=== PATIENT | male | born 1955 ===

== ENCOUNTER 2016-12-07 08:51 | Emergency (ER) | payer OTHER ==
[2016-12-07 08:52] VITALS: BMI 30.9
--- NOTE | 2016-12-07 09:47 | C.PDOC ---
History Of Present Illness 61 yo male, presnets with dyuria and urinary frequency x 5 months. pt states he has been seeing his urologist, however can no longer see his urologist due to insurance insurance. pt reports "seconds" of suprapubic pain when he urinates. no fevrs, n/v/d, or other complaints Time Seen by Provider: 12/07/16 09:14 Chief Complaint (Nursing): Abdominal Pain Past Medical History Reviewed: Historical Data, Nursing Documentation, Vital Signs Vital Signs: Last Vital Signs Temp 98.0 F 12/07/16 11:22 Pulse 77 12/07/16 11:22 Resp 16 12/07/16 11:22 BP 117/78 12/07/16 11:22 Pulse Ox 98 12/07/16 12:07 - Medical History PMH: Anxiety, HTN, Kidney Stones, Chronic Kidney Disease Family History: States: Unknown Family Hx - Social History Hx Alcohol Use: No Hx Substance Use: No - Immunization History Hx Influenza Vaccination: No Review Of Systems Except As Marked, All Systems Reviewed And Found Negative. Genitourinary: Positive for: Dysuria, Frequency Physical Exam - Physical Exam Appears: Well, No Acute Distress Skin: Normal Color, Warm, Dry Eye(s): bilateral: Normal Inspection, PERRL, EOMI Nose: Normal Throat: Normal Neck: Normal Cardiovascular: Rhythm Regular Respiratory: Normal Breath Sounds Gastrointestinal/Abdominal: Normal Exam, Soft, Tenderness (minimal suprapubic), No Guarding, No Rebound Back: Normal Inspection Extremity: Normal ROM ED Course And Treatment O2 Sat by Pulse Oximetry: 98 Medical Decision Making Medical Decision Making: r/o uti/ suspect bph vs malignancy. extensive bedside discussion about outpt urology w/u needed. pt abd soft no ttp, pt comfortable. 1115: pt reassesedL post void residual <15ml after urinating. ua neg. encouraged outpt w/u with known elevatd psa. pt agrees to f/u outpt. abd soft no ttp, no rlq ttp Disposition - Disposition Referrals: Alonzo Lynn MD [Staff Provider] - [employer] [facility] [Outside] [facility] [Outside] Disposition: HOME/ ROUTINE Disposition Time: 11:00 Condition: GOOD Additional Instructions: please follow up with your doctor. return to er with worsening symptoms or concerns. you will need additional workup as an outpt Instructions: Dysuria (ED) Forms: [facility] (Vietnamese) - Clinical Impression Clinical Impression: Dysuria
[2016-12-07 10:18] LABS: URINE BILIRUBIN NEGATIVE (NEGATIVE); URINE BLOOD NEGATIVE (NEGATIVE); URINE COLOR Amber (YELLOW); URINE GLUCOSE (UA) NORMAL (Normal); URINE KETONE NEGATIVE (NEGATIVE); URINE LEUKOCYTE ESTERASE NEG Leu/uL (Negative); URINE PROTEIN NEGATIVE (NEGATIVE); URINE UROBILINOGEN NORMAL mg/dL (0.2-1.0); WBC URINE < 1 /hpf (0-5)
[2016-12-07 11:23] VITALS: BP 117/78; PULSE 77; RESP 16; TEMP 98
[2016-12-07 12:07] VITALS: O2SAT 98
== END 2016-12-07 11:28 | disposition home or self-care (01) ==
LOC: C.ER 08:51
DX: R30.0 Dysuria (principal)

== ENCOUNTER 2017-02-17 20:07 | Emergency (ER) | payer OTHER ==
[2017-02-17 20:08] VITALS: BMI 33.4
[2017-02-17 20:15] VITALS: O2SAT 97
[2017-02-17] MEDS ORDERED: Sucralfate 1 gm/10 ml Oral Susp UD PO STA (20:30)
--- NOTE | 2017-02-17 20:30 | C.PDOC ---
History Of Present Illness 61 year old male, whose PMHx includes Gastritis, presents to the ED for evaluation of epigastric abdominal pain that radiates to chest wall for 2 days. Patient reports slight nausea and notes he had one episode of vomiting this morning. Patient denies fever, chills, diarrhea. Chief Complaint (Nursing): Abdominal Pain History Per: Patient History/Exam Limitations: no limitations Onset/Duration Of Symptoms: Days (2) Current Symptoms Are (Timing): Still Present Location Of Pain/Discomfort: Epigastric Radiation Of Pain To:: Chest Quality Of Discomfort: "Pain" Associated Symptoms: Nausea, Vomiting. denies: Fever, Chills, Diarrhea Additional History Per: Patient Past Medical History Reviewed: Historical Data, Nursing Documentation, Vital Signs Vital Signs: Last Vital Signs Temp 98.0 F 02/17/17 20:11 Pulse 93 H 02/17/17 20:11 Resp 16 02/17/17 20:11 BP 144/81 02/17/17 20:11 Pulse Ox 97 02/17/17 20:33 - Medical History PMH: Anxiety, Gastritis, HTN, Kidney Stones, Chronic Kidney Disease Surgical History: No Surg Hx Family History: States: Unknown Family Hx - Social History Hx Alcohol Use: No Hx Substance Use: No - Immunization History Hx Influenza Vaccination: No Review Of Systems Constitutional: Negative for: Fever, Chills Cardiovascular: Positive for: Chest Pain Gastrointestinal: Positive for: Nausea, Vomiting, Abdominal Pain (epigastric ). Negative for: Diarrhea Physical Exam - Physical Exam Appears: Non-toxic, No Acute Distress Skin: Normal Color, Warm, Dry Head: Atraumatic, Normacephalic Eye(s): bilateral: Normal Inspection Oral Mucosa: Moist Neck: Supple Chest: Symmetrical, No Deformity, No Tenderness Cardiovascular: Rhythm Regular, No Murmur Respiratory: Normal Breath Sounds, No Rales, No Rhonchi, No Wheezing Gastrointestinal/Abdominal: Soft, Tenderness (epigastric ), No Guarding, No Rebound Extremity: Normal ROM, Capillary Refill (less than 2 seconds ) Neurological/Psych: Oriented x3, Normal Speech, Normal Cognition Gait: Steady ED Course And Treatment - Laboratory Results Result Diagrams: 02/17/17 20:38 02/17/17 20:38 O2 Sat by Pulse Oximetry: 97 (on RA) Pulse Ox Interpretation: Normal Progress Note: Bloodwork, Urinalysis, EKG ordered and reviewed. Carafate PO and Protonix IVP administered. Disposition Counseled Patient/Family Regarding: Diagnosis - Disposition Referrals: [facility] [Outside] Disposition: HOME/ ROUTINE Disposition Time: 22:05 Condition: STABLE Prescriptions: Lansoprazole [Prevacid] 30 mg PO DAILY #30 capsule.dr Instructions: Gastritis (GEN), Diet for Ulcers and Gastritis (ED), Gastroesophageal Reflux Disease (ED) Forms: [employer] [facility] (Chinese), Gen Discharge Inst Turkmen Print Language: MALAYSIAN - POA Present On Arrival: None - Clinical Impression Clinical Impression: Epigastric abdominal pain, Gastro-esophageal reflux, Gastritis - Scribe Statement The provider has reviewed the documentation as recorded by the Scribe (Abida Ly) Provider Attestation: All medical record entries made by the Scribe were at my direction and personally dictated by me. I have reviewed the chart and agree that the record accurately reflects my personal performance of the history, physical exam, medical decision making, and the department course for this patient. I have also personally directed, reviewed, and agree with the discharge instructions and disposition.
[2017-02-17] MEDS ORDERED: Sucralfate 1 gm/10 ml Oral Susp UD ONE (20:41)
[2017-02-17 20:43] LABS: BASO # 0.1 K/uL (0.0-0.2); BASO % 0.7 % (0.0-2.0); EOS # 0.1 K/uL (0.0-0.7); EOS % 0.8 % (0.0-4.0); HEMATOCRIT 40.2 % (35.0-51.0); LYMPH % 24.8 % (20.0-40.0); MEAN CELL VOLUME 91.1 fL (80.0-94.0); MEAN CORPUSCULAR HEMOGLOBIN 31.1 pg (27.0-31.0); MEAN CORPUSCULAR HGB CONC 34.2 g/dL (33.0-37.0); MEAN PLATELET VOLUME 7.2 fL (7.2-11.7); MONO # 0.5 K/uL (0.0-0.8); MONO % 6.2 % (0.0-10.0); RED CELL DISTRIBUTION WIDTH 12.5 % (11.5-14.5); WHITE BLOOD COUNT 8.1 K/uL (4.8-10.8)
[2017-02-17 20:53] LABS: RBC URINE 1 /hpf (0-3); URINE BILIRUBIN NEGATIVE (NEGATIVE); URINE COLOR Yellow (YELLOW); URINE GLUCOSE (UA) NORMAL (Normal); URINE KETONE NEGATIVE (NEGATIVE); URINE LEUKOCYTE ESTERASE NEG Leu/uL (Negative); URINE PROTEIN NEGATIVE (NEGATIVE); URINE UROBILINOGEN NORMAL mg/dL (0.2-1.0); WBC URINE < 1 /hpf (0-5)
[2017-02-17 20:54] LABS: ALKALINE PHOSPHATASE 53 U/L (38-126); ALT/SGPT 65 U/L (21-72); AST/SGOT 26 U/L (17-59); BILIRUBIN,TOTAL 0.4 mg/dL (0.2-1.3); BLOOD UREA NITROGEN 21 mg/dL (9-20); CALCIUM 9.1 mg/dl (8.6-10.4); CARBON DIOXIDE 29 mmol/L (22-30); CHLORIDE 100 mmol/L (98-107); GFR AFRICAN-AMERICAN > 60; GLUCOSE,RANDOM 111 mg/dL (75-110); POTASSIUM 4.5 mmol/L (3.6-5.2); SODIUM 138 mmol/L (132-148); TOTAL PROTEIN 8.8 g/dL (6.3-8.3)
[2017-02-17 20:56] LABS: ALB/GLOB RATIO 1.1 (1.0-2.1)
[2017-02-17 21:02] LABS: URINE BLOOD NEGATIVE (NEGATIVE)
[2017-02-17 22:24] VITALS: BP 136/82; PULSE 74; RESP 20; TEMP 97.9
== END 2017-02-17 22:23 | disposition home or self-care (01) ==
LOC: C.ER 20:07
DX: K21.9 Gastro-esophageal reflux disease without esophagitis (principal); K29.70 Gastritis, unspecified, without bleeding; R10.13 Epigastric pain
CPT/HCPCS: 80053; 81001; 83690; 84484; 85025; 96374; 99284; C9113

== ENCOUNTER 2017-04-15 12:53 | Emergency (ER) | payer OTHER ==
[2017-04-15 12:54] VITALS: BMI 33.4
[2017-04-15 13:30] VITALS: BP 158/85; PULSE 79; RESP 17; TEMP 98.5; O2SAT 98
--- NOTE | 2017-04-15 14:00 | C.PDOC ---
History Of Present Illness 61 y/o male presents to the ER complaining of right ear irritation for the past 3 weeks. Patient reports that he has been using Cortisporin Otic solution 3 drops TID for the past 2 weeks. He states the drops are from his . He also reports that he is taking Doxycycline 100 mg BID for 1 week and the symptoms felt better. Patient is now having occasional ear pain and taking Motrin 800 mg BID. Patient does not have any other complaints. Time Seen by Provider: 04/15/17 13:47 Chief Complaint (Nursing): ENT Problem History Per: Patient Onset/Duration Of Symptoms: Days Current Symptoms Are (Timing): Still Present Severity: Moderate Past Medical History Reviewed: Historical Data, Nursing Documentation, Vital Signs Vital Signs: Last Vital Signs Temp 98.5 F 04/15/17 13:27 Pulse 79 04/15/17 13:27 Resp 17 04/15/17 13:27 BP 158/85 H 04/15/17 13:27 Pulse Ox 98 04/15/17 14:19 - Medical History PMH: Anxiety, Gastritis, HTN, Kidney Stones, Chronic Kidney Disease Other Surgeries: hx of surgeries Family History: States: No Known Family Hx - Social History Hx Alcohol Use: No Hx Substance Use: No - Immunization History Hx Influenza Vaccination: No Review Of Systems Except As Marked, All Systems Reviewed And Found Negative. Constitutional: Negative for: Fever, Chills ENT: Positive for: Ear Pain (right ear ) Physical Exam - Physical Exam Appears: Non-toxic, No Acute Distress Skin: Normal Color, Warm Head: Atraumatic, Normacephalic Eye(s): bilateral: Normal Inspection Ear(s): Left: Normal, Right: Other (minor boggy tissues in inner ear canal, excoriated ear canal possibly due to Q tip excoriation, normal TM) Nose: Normal Throat: Normal, No Erythema, No Exudate Neck: Supple Chest: Symmetrical Cardiovascular: Rhythm Regular Respiratory: Normal Breath Sounds, No Accessory Muscle Use, No Rales, No Rhonchi , No Wheezing Extremity: Normal ROM Neurological/Psych: Oriented x3, Normal Speech, Normal Motor, Normal Sensation ED Course And Treatment O2 Sat by Pulse Oximetry: 98 (RA) Pulse Ox Interpretation: Normal Medical Decision Making Medical Decision Makin week of doxy 100 mg BID and Cortisporin Otic 3 drops TID x 2 weeks, seem to have resolved the R otitis externa, but leaving boggy tissues. Reccomend d/c all abx and ear drops and f/u in Clinic in 1-2 weeks for re-eval. ? overuse of steroids in ears may provoke weaker ear canal tissues- allow to heal normally from now. Discouraged Q-tipping. Disposition Doctor Will See Patient In The: Office Counseled Patient/Family Regarding: Studies Performed, Diagnosis - Disposition Referrals: [facility] [Outside] Anton Ochoa MD [Staff Provider] - Disposition: HOME/ ROUTINE Disposition Time: 13:59 Condition: GOOD Additional Instructions: Ya no usas nada de gotas en el oido derecho. Violet de erik antibioticos por via oral [place] pone Q-tip adentro del oido. Violet que louis normalmente por 2 semanas- sigue con [facility] o' con Dr. Ochoa- Otolaryngologo- beth necessario. Instructions: Otitis Externa (ED) Forms: [employer] (Bengali) Print Language: LITHUANIAN - Clinical Impression Clinical Impression: Otitis externa - Scribe Statement The provider has reviewed the documentation as recorded by the Scribe Leticia Kemp Provider Attestation: All medical record entries made by the Scribe were at my direction and personally dictated by me. I have reviewed the chart and agree that the record accurately reflects my personal performance of the history, physical exam, medical decision making, and the department course for this patient. I have also personally directed, reviewed, and agree with the discharge instructions and disposition.
== END 2017-04-15 14:18 | disposition home or self-care (01) ==
LOC: C.ER 12:53
DX: H60.91 Unspecified otitis externa, right ear (principal)